=== PATIENT | female | born 1990 | race Two or more races ===

== ENCOUNTER 2024-12-31 10:49 | Outpatient (AMB) | payer BC, SELFPAY ==
--- NOTE | 2024-12-31 11:01 | A.OFFVIS_ITS ---
Intake Visit Reasons: recurrent UTI Intake Note: New Patient is present for recurrent UTI Urology Rx:none PVR:19 ml s Blood Thinners:none Laboratory Equipment Cleaner Required: No Accompanied by: Self / Same As Patient Allergies No Known Allergies Allergy (Verified 12/31/24 11:16) HPI Comments Details: Sheila is a pleasant female. She is a patient of Dr. Paniagua. She is seen for the following urologic conditions - recurrent UTI Reports 4 UTIs over the past 12 months Does appear to have some relationship to menstrual cycle Any medication control pill Discussed dietary micro biome reinforcement UA today trace leukocytes, trace blood Suggest three-month of antibiotic prophylaxis Six-month follow-up Review of Systems Const Denies chills and Denies fever(s) Card Reports no additional complaints and Denies syncope Resp Denies cough GI Denies abdominal pain and Denies heartburn Reports as per HPI and Denies change in libido Neuro Denies syncope Psych Denies change in libido Endo Denies change in libido Physical Exam Const General: cooperative, healthy appearing, comfortable and no acute distress Orientation/consciousness: patient oriented x3 HEENT Face and sinus: Yes normal facial exam Mouth: moist mucous membranes Neck Neck: Yes normal visual inspection, Yes full ROM and Yes trachea midline Chest Chest palpation & inspection: normal inspection of the chest Resp Effort & Inspection: normal respiratory effort, able to speak in complete sentences and no respiratory distress GI Inspection: Yes normal to inspection Back/Spine/Pelvis Cervical Spine: normal cervical lordosis Thoracic/Lumbar Spine: thoracic and lumbar spine normal to inspection Skin General skin exam: no rashes or lesions noted Neuro General: patient oriented x3, gait normal, tone normal and moves all extremities Extrem General: Yes normal to inspection and Yes capillary refill normal Assessment & Plan Assessment & Plan (1) Recurrent UTI: Code(s): N39.0 - Urinary tract infection, site not specified Category: Medical Plan Vitamin-C and methenamine Macrodantin Medications: New nitrofurantoin macrocrystal 50 mg PO DAILY 90 caps 0RF 90 days N39.0 - Urinary tract infection, site not specified ascorbic acid (vitamin C) 1,000 mg PO DAILY 90 tabs 1RF 90 days N39.0 - Urinary tract infection, site not specified methenamine hippurate 1 g PO DAILY 90 tabs 1RF 90 days N39.0 - Urinary tract infection, site not specified Patient Instructions: This note is constructed using voice recognition software. While every effort has been made to ensure accuracy visual artist errors may have been included. Imaging studies, laboratory and physical exam results were discussed and reviewed in detail. No major barriers to patient understanding were identified. An opportunity to ask questions regarding the treatment plan was provided. All questions were answered. The patient expressed understanding and agreement with the above treatment plan. The patient is aware they should contact our office by phone for worsening of their current condition or the appearance of new urologic symptoms. Compliance is encouraged with any medications and followup testing that is ordered. It is a privilege to participate in the urologic care of your patient. If you have any questions or concerns regarding treatment for the above conditions, or other urologic issues, please do not hesitate to contact me. The office telephone contact is [phone]. Sincerely, Dr Roger Herring MD, [facility] - Urology Compassionate Specialist Care for the Genitourinary System Coding Level of Care Code New Pt Level 4 (13692) Diagnoses Recurrent UTI N39.0
--- OUTSIDE RECORDS SUMMARY | 2024-12-31 12:03 | XMS_ITS ---
Author Name [facility] Organization Unknown Results Test Name/Text Value Interpretation Date Range Source Bacteria Ur Cult SEE NOTE 11/19/2024 QU EST History of Medication Use Medication Directions Dispensed Refills Start Date End Date Stat us ketorolac (TORADOL) injection 30 mg 11/17/2024 11/17/2024 completed cetirizine-pseudoep hedrine (ZyrTEC-D Allergy & Congestion) 5-120 MG per tablet Take 1 tablet by mouth 2 (two) times a day. 10/12/2023 10/20/2023 active valACYclovir (VALTREX) 500 MG tablet TAKE 1 TABLET BY MOUTH TWICE A DAY FOR 5 DAYS 07/21/2021 active [place] 0.1-20 MG-MCG per tablet Take 1 tablet by mouth daily. 04/26/2020 active Problems Problem Status Onset Date Problem Type Date of Resolution Source Dyspnea and respiratory abnormalities active 2023-08-15 ProblemAct [facility] Right flank pain active EncounterDiagnosisAct [facility] Near syncope active 2023-08-15 ProblemAct [facility] Lightheadedness active 2023-08-15 ProblemAct [facility] Immunizations Vaccine Date Source Lot Number Status Covid-19 MRNA Primary Series Vaccine - Pfizer 12+ [facility] 09/28/2021 [facility] [id number] completed Covid-19 MRNA Vaccine - Pfiz er 12+ (Purple Cap) 09/22/2020 [facility] [id number] completed Covid-19 MRNA Vaccine - Pfiz er 12+ (Purple Cap) 09/01/2020 [facility] [id number] completed Encounters Encounter Type Encounter Reason Primary Diagnosis Location Date Ambulatory [facility] 11/18/2024 Ambulatory Unspecified abdomina l pain Unspecified abdominal pain [facility] 11/17/2024 Ambulatory Dysuria Dysuria [facility] 09/19/2024 Ambulatory Conjunctivitis Conjunctivitis [facility] 07/04/2024 Ambulatory Urinary Tract Infection Urinary Tract Infection [facility] 02/27/2024 Ambulatory Nasal Congestion Nasal Congestion [facility] 10/12/2023 Ambulatory [facility] 09/13/2023 Ambulatory Syncope and collapse Syncope and collapse [facility] 08/16/2023 Emergency Dizziness and giddiness Dizziness and giddiness [facility] 07/31/2023 Ambulatory Acute upper respiratory infection, unspecified [facility] 11/09/2022 Ambulatory COVID-19 [facility] 09/04/2022 Ambulatory Acute cystitis w ith hematuria [facility] 12/20/2021 Ambulatory [facility] 09/28/2021 [address], unspecified [facility] 08/03/2021 Care Team Organization Name Specialty Phone Email Start Date End Da te [facility] PCP Radiation Control Specialist 09/22/2024 12/18/2024 [facility] PCP,No Primary Care 12/20/2021 12/18/2024 [facility] NO PCP Primary Care 08/03/2021 08/03/2021
--- OUTSIDE RECORDS SUMMARY | 2024-12-31 12:03 | XMS_ITS | Encounter Summary ---
Author Organization [facility] Address [address] [place] [address] Care Team Providers Care Director Of Epidemiology Name Role Phone Pcp, No Primary Care Provider Unavailabl e Melani Rodriguez MD Unavailable [phone] Melani Rodriguez MD Unavailable [phone] Encounter Details Date Type Department Care Team (Late st Contact Info) Description 06/23/2020 Lab Requisition [facility] [address] [place] [phone] Del Saenz MD [address] [place] [address] Encounter for laboratory testing for COVID-19 virus Social History Tobacco Use Types Packs/Day Years Used Date Smoking Tobacco: Never Assessed Comments Unknown Sex and Gender Information Value Date Recorded Sex Assigned at Female 11/09/2022 1:18 PM EDT Legal Sex Female 2:17 PM EDT Gender Identity Female 02/18/2021 1:55 PM EDT Sexual Orientation Heterosexual (straight) 02/18 1:55 PM EDT documented as of this encounter Plan of Treatment Not on file documented as of this encounter Procedures Procedure Name Priority Date/Time Associated Diagnosis Comments COVID-19 RT-PCR (MIKEL CHUNG) Routine 06/23/2020 3:04 PM EST Encounter for laboratory testing for COVID-19 virus [ICD-10-CM] documented in this encounter Results * COVID-19 RT-PCR (Mikel Chung) (06/23/2020 3:04 PM EST) COVID-19 RT-PCR SARS-COV-2 NOT DETECTED Not Detected 06/24/2020 11:04 AM EST [facility] Comment: ADDITIONAL INFORMATION The HELENA COVID-19 RT-PCR Assay is Real-Time Reverse Jewel Setter Polymerase Chain Reaction (stockroom supervisor-PCR) for the in vitro qualitative detection of three SARS-Cov-2 target sequences unique to the coronavirus disease 2019 (COVID-19). This is an Emergency Use Authorization (EUA) in vitro diagnostic (IVD) test that has been modified to include the Personal Medicine automated liquid handler. Its analytical performance characteristics have been determined by the bulldogger and verified by [facility] in a manner consistent with CLIA requirements. This test may be used for clinical purposes and should not be regarded as purely investigational or for research use only. This laboratory is certified under the Clinical Laboratory Improvement Amendments of 1988 (CLIA) as qualified to perform high complexity clinical testing. Reference interval for this testing is SARS-CoV-2 Not Detected. Fact sheets for this Emergency Use Authorization assay can be found at the following links: For Healthcare Providers: https://www.fda.gov/media/119618/download For Patients: https://www.fda.gov/media/560939/download TEST LIMITATIONS Positive results are indicative of the presence of SARS-CoV-2 RNA; clinical correlation with patient history and other diagnostic information is necessary to determine patient infection status. Positive results do not rule out bacterial infection or co-infection with other viruses. The agent detected may not be the definite cause of disease. Negative results do not exclude SARS-CoV-2 infection and should not be used as the sole basis for patient management decisions. Negative results must be combined with clinical observations, patient history, and epidemiological information. Improper sample collection, transport or storage may impede the ability of the assay to detect target sequences. Inconclusive specimens are not repeated, and recollection and submission of a new sample is recommended. The performance of the TaqPath COVID-19 Combo Kit was established using nasopharyngeal swab, nasopharyngeal aspirate, and bronchoalveolar lavage (BAL) specimens. The limit of detection for the assay was determined to be 0.75copies/uL in the specimens of nasopharyngeal swab. Other specimen types may be need for further validation before testing on this system. For further details refer to the CircuitLabPath COVID-19 Combo Kit EUA submission (https://www.[employer].gov/media/644418/download). ----- Test performed by [facility], [address] [place] [id number] CLIA# [id number] Payam Dumont M.D., Ph.D., [facility], Clinical Bail Bonding Agent Microbiology Nasopharyngeal swab / Unknown 06/23/2020 3:04 PM EST 06/23/2020 3:04 PM EST Narrative [facility] - 06/24/2020 11:04 AM EST Performed at [facility], [address] [place] [address], [place] Lic 0[place], CLIA [id number] Del Saenz MD MICROBIOLOGY - GENERAL ORDERAB LES Final Result [facility] [address] [place] [address] documented in this encounter Visit Diagnoses Diagnosis Encounter for laboratory testing for COVID-19 virus documented in this encounter Care Teams Director Of Epidemiology Relationship Specialty Start Date End Date Pcp, No PCP - General General Medicine 06/26/20 Melani Rodriguez MD [address] [place], [place] [id number] [facility] Attributed 11/01/23 12/01/23 Melani Rodriguez MD [address] [place], [place] [id number] Primary [employer]ian Blind Maker Cardiovascular Disease 08/24/23 documented as of this encounter
--- OUTSIDE RECORDS SUMMARY | 2024-12-31 12:03 | XMS_ITS | Encounter Summary ---
Author Organization [facility] Address [address] [place] [address] Care Team Providers Care Giver Name Role Phone Radha Keating BJ Primary Care Provider [phone] Encounter Details Date Type Department Care Team (Late st Contact Info) Description 03/02/2022 Interim Notes [facility] [address] [place] [phone] La Nena Moseley, Community Health Worker [address] [place] [address] Social History Tobacco Use Types Packs/Day Years Used Date Smoking Tobacco: Never Assessed Social Connections Answer Date Recorded Social Connections and Isolation 0 01/24/2022 Financial Resource Strain Answer Date R ecorded Financial Resource Strain 0 2021 Stress Answer Date Recorded Stress 0 01/24/2022 Physical Activity Answer Date Recorded Physical Activity 0 01/24/2022 Food Insecurity Answer Date Recorded Food 0 01/24/2022 Transportation Needs Answer Date Record ed Transportation 0 01/24/2022 Housing Stability Answer Date Recorded Housing 0 01/24/2022 Safety and Environment Answer Date Kamaljit rded Safety 0 01/24/2022 Utilities Answer Date Recorded Utilities 0 01/24/2022 Employment Answer Date Recorded Employment 0 01/24/2022 Comments Unknown Sex and Gender Information Value Date Recorded Sex Assigned at Female 05/18/2023 9:29 AM PST Legal Sex Female 11:36 AM PDT Gender Identity Female 05/18/2023 9:29 AM PST Sexual Orientation Straight 05/18/2023 9: 29 AM PST documented as of this encounter Plan of Treatment Not on file documented as of this encounter Visit Diagnoses Not on filedocumented in this encounter Care Teams Giver Relationship Specialty Start Date End Date Radha Keating FNP [address] [place] [id number] PCP - General Internal Medicine 03/04/22 documented as of this encounter
== END 2024-12-31 11:46 | disposition home or self-care (01) ==
LOC: HO.HUSH 10:50
PROVIDERS: PCP Physician Assistant; Visit Provider Urology
DX: N39.0 Urinary tract infection, site not specified (principal); Z13.9 Encounter for screening, unspecified
CPT/HCPCS: 99204

== ENCOUNTER 2024-12-31 10:49 | Outpatient (REF) | payer BC, SELFPAY | END 2024-12-31 10:50 | disposition home or self-care (01) | LOC: HO.LNP 10:49 | PROVIDERS: PCP Physician Assistant; Visit Provider Urology | DX: N39.0 Urinary tract infection, site not specified (principal) | CPT/HCPCS: 51798; 81003; 87086 ==